=== PATIENT | female | born 1980 | race Caucasian/White ===

== ENCOUNTER 2018-11-12 08:28 | Day surgery (SDC) | payer BC ==
[2018-11-12 08:57] VITALS: RESP 18
[2018-11-12] MEDS ORDERED: Sodium Chloride 0.9% 1,000 ML IV SCH (09:00)
[2018-11-12] MEDS ORDERED: Propofol 10 mg/ml Inj (20 ML) ONE ×2 (09:44→09:55)
[2018-11-12 16:22] VITALS: BP 91/60; PULSE 59; TEMP 97.7; O2SAT 98
== END 2018-11-12 11:24 | disposition home or self-care (01) ==
LOC: ENDO 08:28
PROVIDERS: ATTEND Internal Medicine Gastroenterology
DX: K21.0 Gastro-esophageal reflux disease with esophagitis (principal); K29.70 Gastritis, unspecified, without bleeding
CPT/HCPCS: 43239; 84703; 88305; 88312; 88342; J2001; J2704; J7030; J7040